=== PATIENT | male | born 1935 | race Hispanic/Latino ===

== ENCOUNTER → 2019-05-07 | Outpatient (CLI) | payer MEDICARE ==
--- NOTE | 2019-05-07 11:35 | Diagnostic Imaging Report ---
EXAM: Lumbar spine radiographs-7 views; sacral radiographs-4 views INDICATION: Fall, low back pain. COMPARISON: None FINDINGS: BONES: The alignment is within normal limits. No acute displaced fractures. Mild age indeterminate loss of vertebral body height in the posterior aspect of L1. Diffuse osteopenia. DISCS: Mild multilevel degenerative disc changes, most pronounced at L5-S1. JOINTS: Severe facet degenerative changes at L5-S1. SOFT TISSUES: Extensive atherosclerotic vascular calcifications. Moderate amount of stool in the colon. IMPRESSION: Mild age indeterminate loss of vertebral body height in the posterior aspect of L1. Suggest correlation with point tenderness. No evidence of acute displaced fracture. Mild multilevel degenerative disc changes, most pronounced at L5-S1. Severe facet degenerative changes at L5-S1. Signed by: Dr. Suzie Melendez MD on 05/07/2019 11:32 AM
== END ==
LOC: RAD 09:48
PROVIDERS: ATTEND Internal Medicine
DX: M54.5 Low back pain (principal); M51.37 Other intervertebral disc degeneration, lumbosacral region; W19.XXXA Unspecified fall, initial encounter
CPT/HCPCS: 72110; 72220

== ENCOUNTER → 2019-05-24 | Outpatient (CLI) | payer MEDICARE ==
--- NOTE | 2019-05-24 10:55 | Diagnostic Imaging Report ---
Examination: CT BRAIN WO CONTRAST History:Loss of balance. Dizziness. Comparison studies:None Technique: Axial images were obtained from the skull base to the vertex. Coronal and sagittal images reconstructed from the axial data. Dose modulation, iterative reconstruction, and/or weight based adjustment of the mA/kV was utilized to reduce the radiation dose to as low as reasonably achievable. Intravenous contrast: None Findings: Scalp: No abnormalities. Bones: No fractures, blastic or lytic lesions. Brain sulci: Appropriate for age. Ventricles: Normal in size and configuration. No hydrocephalus. Extra-axial space: No acute abnormality. Bifrontal chronic subdural collections are identified with mild regional mass effect, but no midline shift or herniation. The right collection measures approximately 1.1 cm and the left collection measures approximately 0.7 cm.. Parenchyma: No masses, hemorrhage, or acute or chronic cortical based vascular insults.. Sellar/suprasellar region: No abnormalities. Craniocervical junction: Patent foramen magnum. No Chiari one malformation. Incidental findings: None. Impression: No acute intracranial abnormalities. 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 No midline shift or herniation. Signed by: Dr. Thais Mejias M.D. on 05/24/2019 10:51 AM
== END ==
LOC: CT 09:29
PROVIDERS: ATTEND Internal Medicine
DX: G45.1 Carotid artery syndrome (hemispheric) (principal); S09.90XA Unspecified injury of head, initial encounter; W10.8XXS Fall (on) (from) other stairs and steps, sequela
CPT/HCPCS: 70450

== ENCOUNTER 2021-10-27 13:10 | Inpatient (IN) | payer MEDICARE, OTHER ==
[~2021-10-27] VITALS: Ht 182.9 cm; Wt 86.9 kg
[2021-10-27 13:44] LABS: BASOPHILS # (AUTO) 0.1 (0.0-0.1); BASOPHILS % 0.8 % (0.0-1.0); EOSINOPHILS # (AUTO) 0.3 (0.0-0.4); EOSINOPHILS % 3.6 % (0.0-6.0); HEMATOCRIT 44.2 % (38.2-49.6); HEMOGLOBIN 14.4 g/dL (14.0-18.0); LYMPHOCYTES # (AUTO) 1.8 (1.0-3.2); LYMPHOCYTES % 23.1 % (18.0-39.1); MEAN CORPUSCULAR HEMOGLOBIN 30.3 pg (28-32); MEAN CORPUSCULAR HGB CONC 32.6 g/dL (31-35); MEAN CORPUSCULAR VOLUME 93.1 fL (81-99); MONOCYTES # (AUTO) 0.7 (0.2-0.8); MONOCYTES % 8.5 % (4.4-11.3); NEUTROPHILS % 63.5 % (38.7-80.0); PLATELET COUNT 202 x10e3/uL (140-360); RED BLOOD COUNT 4.75 x10e6/uL (4.3-5.7); RED CELL DISTRIBUTION WIDTH 13.1 % (11.7-14.4)
[2021-10-27 13:57] LABS: ALBUMIN 3.2 g/dL (3.5-5.0); ALBUMIN/GLOBULIN RATIO 0.8 (0.8-2.0); ANION GAP 14.2 mmol/L (8-16); CALCIUM 9.4 mg/dL (8.4-10.2); CREATININE, SERUM 3.49 mg/dL (0.72-1.25); POTASSIUM 4.2 mmol/L (3.5-5.1)
[2021-10-27] MEDS ORDERED: AMLODIPINE BESYL5 MG PO (14:25)
[2021-10-27] MEDS ORDERED: LISINOPRIL20 MG PO (14:27)
[2021-10-27] MEDS ORDERED: LIPITOR20 MG PO (14:27)
[2021-10-27] MEDS ORDERED: SENSIPAR30 MG PO (14:27)
[2021-10-27] MEDS ORDERED: METOPROLOL TARTRATE 25 MG TAB PO ONE (14:30)
[2021-10-27] MEDS ORDERED: METOPROLOL TARTRATE INJ 1 MG/ML VIAL IV ONE (14:30)
[2021-10-27] MEDS ORDERED: HEPARIN SOD (PORCINE) 5,000 UNIT/ML VIAL IV ONE (14:45)
[2021-10-27] MEDS ORDERED: ASPIRIN 81 MG CHEW TAB PO ONE ×2 (14:45→16:15)
[2021-10-27 14:51] LABS: INR 0.89; PROTHROMBIN TIME 12.9 seconds (11.9-14.5)
[2021-10-27] MEDS ORDERED: NIFEDIPINE CR 30 MG TAB PO SCH (15:15)
[2021-10-27] MEDS ORDERED: POTASSIUM CHLORIDE 20 MEQ TAB CR PO PRN (15:15)
[2021-10-27] MEDS ORDERED: TRAMADOL HCL 50 MG TAB PO PRN (15:15)
[2021-10-27] MEDS ORDERED: ALBUTEROL/IPRATROPIUM 3 ML NEB NEB PRN (15:15)
[2021-10-27] MEDS ORDERED: ACETAMINOPHEN 325 MG TAB PO PRN (15:15)
[2021-10-27] MEDS ORDERED: DOCUSATE SODIUM 100 MG CAP PO PRN (15:15)
[2021-10-27] MEDS ORDERED: LIDOCAINE 4% PATCH TP PRN (15:15)
[2021-10-27] MEDS ORDERED: DEXTROSE 50% SYRINGE 50 ML IV PRN (15:15)
[2021-10-27] MEDS ORDERED: ONDANSETRON HCL INJ 2MG/ML 2ML 2 MG/ML VIAL IV PRN (15:15)
[2021-10-27] MEDS ORDERED: HYDRALAZINE HCL 20 MG/ML VIAL IV PRN (15:15)
[2021-10-27] MEDS ORDERED: BENZONATATE 100 MG CAP PO PRN (15:15)
[2021-10-27] MEDS ORDERED: DIPHENHYDRAMINE HCL 25 MG CAP PO PRN (15:15)
[2021-10-27] MEDS ORDERED: METOPROLOL SUCCINATE 25 MG TAB XL PO SCH (15:15)
[2021-10-27] MEDS ORDERED: SIMETHICONE 80 MG CHEW PO PRN (15:15)
[2021-10-27 15:55] VITALS: BP 138/89
[2021-10-27] MEDS: HEPARIN 25,000 UNIT 1,000 UNIT in DEXTROSE 5% 250ML 250 ML IV SCH (16:00)
[2021-10-27 16:08] VITALS: BP 138/89
[2021-10-27 16:14] VITALS: BP 138/89
[2021-10-27] MEDS ORDERED: ASPIRIN 81 MG CHEW TAB PO NR (16:15)
[2021-10-27] MEDS: SODIUM CHLORIDE 0.9% 1000ML 1,000 ML IV SCH (17:13)
[2021-10-27 20:00] VITALS: BP 130/78
[2021-10-27] MEDS ORDERED: NICOTINE 21 MG/EA PATCH TOP SCH (20:00)
[2021-10-27] MEDS ORDERED: MELATONIN 5 MG TABLET PO PRN (21:00)
[2021-10-27] MEDS: METOPROLOL TARTRATE 25 MG TAB PO SCH (21:13)
[2021-10-27] MEDS: ATORVASTATIN 20 MG TAB PO SCH (21:13)
[2021-10-27 21:30] VITALS: BP 130/78
[2021-10-28] VITALS (10 sets, daily range): BP systolic 130–181; BP diastolic 78–111
[2021-10-28] MEDS: SODIUM CHLORIDE 0.9% 1000ML 1,000 ML IV SCH ×2 (04:31→19:44)
[2021-10-28 06:46] LABS: BASOPHILS # (AUTO) 0.1 (0.0-0.1); BASOPHILS % 0.8 % (0.0-1.0); EOSINOPHILS # (AUTO) 0.3 (0.0-0.4); EOSINOPHILS % 3.3 % (0.0-6.0); HEMATOCRIT 41.6 % (38.2-49.6); HEMOGLOBIN 13.2 g/dL (14.0-18.0); LYMPHOCYTES # (AUTO) 2.4 (1.0-3.2); LYMPHOCYTES % 29.6 % (18.0-39.1); MEAN CORPUSCULAR HEMOGLOBIN 29.7 pg (28-32); MEAN CORPUSCULAR HGB CONC 31.7 g/dL (31-35); MEAN CORPUSCULAR VOLUME 93.5 fL (81-99); MONOCYTES # (AUTO) 0.7 (0.2-0.8); MONOCYTES % 9.2 % (4.4-11.3); NEUTROPHILS # (AUTO) 4.5 (2.1-6.9); NEUTROPHILS % 56.7 % (38.7-80.0); PLATELET COUNT 185 x10e3/uL (140-360); RED BLOOD COUNT 4.45 x10e6/uL (4.3-5.7); RED CELL DISTRIBUTION WIDTH 13.2 % (11.7-14.4)
[2021-10-28 07:38] LABS: ANION GAP 11.4 mmol/L (8-16); CALCIUM 8.8 mg/dL (8.4-10.2); CREATININE, SERUM 3.07 mg/dL (0.72-1.25); POTASSIUM 4.4 mmol/L (3.5-5.1)
[2021-10-28 08:02] LABS: CHOL/HDL RATIO 4.4 (3.9-4.7); MAGNESIUM 1.9 MG/DL (1.3-2.1)
[2021-10-28 08:22] LABS: THYROID STIMULATING HORMONE 1.836 uIU/mL (0.350-4.940)
[2021-10-28 08:36] LABS: CREATINE KINASE MB 19.1 ng/mL (0-5.0)
[2021-10-28] MEDS: METOPROLOL TARTRATE 25 MG TAB PO SCH ×2 (09:22→16:53)
[2021-10-28] MEDS: PANTOPRAZOLE SOD 40 MG TABEC PO SCH (09:22)
[2021-10-28] MEDS: ASPIRIN 81 MG ENTERIC COATED PO SCH (09:22)
[2021-10-28 14:57] LABS: CREATINE KINASE MB 7.1 ng/mL (0-5.0)
[2021-10-28] MEDS: HEPARIN 25,000 UNIT 1,000 UNIT in DEXTROSE 5% 250ML 250 ML IV SCH (16:54)
[2021-10-28] MEDS ORDERED: NICOTINE 21 MG/EA PATCH TOP SCH (21:00)
[2021-10-28] MEDS: ATORVASTATIN 20 MG TAB PO SCH (21:30)
[2021-10-28] MEDS ORDERED: HEPARIN 25,000 UNIT 1,000 UNIT in DEXTROSE 5% 250ML 250 ML IV SCH (21:40)
[2021-10-29] VITALS (21 sets, daily range): BP systolic 142–194; BP diastolic 81–111
[2021-10-29] MEDS: PANTOPRAZOLE SOD 40 MG TABEC PO SCH (05:52)
[2021-10-29 05:57] LABS: BASOPHILS # (AUTO) 0.1 (0.0-0.1); BASOPHILS % 0.9 % (0.0-1.0); EOSINOPHILS # (AUTO) 0.3 (0.0-0.4); EOSINOPHILS % 3.3 % (0.0-6.0); HEMATOCRIT 43.6 % (38.2-49.6); HEMOGLOBIN 14.1 g/dL (14.0-18.0); LYMPHOCYTES # (AUTO) 2.3 (1.0-3.2); LYMPHOCYTES % 28.7 % (18.0-39.1); MEAN CORPUSCULAR HEMOGLOBIN 29.9 pg (28-32); MEAN CORPUSCULAR HGB CONC 32.3 g/dL (31-35); MEAN CORPUSCULAR VOLUME 92.6 fL (81-99); MONOCYTES # (AUTO) 0.8 (0.2-0.8); MONOCYTES % 9.7 % (4.4-11.3); NEUTROPHILS # (AUTO) 4.5 (2.1-6.9); NEUTROPHILS % 56.9 % (38.7-80.0); PLATELET COUNT 179 x10e3/uL (140-360); RED BLOOD COUNT 4.71 x10e6/uL (4.3-5.7); RED CELL DISTRIBUTION WIDTH 13.1 % (11.7-14.4)
[2021-10-29 06:22] LABS: ANION GAP 12.4 mmol/L (8-16); CALCIUM 9.2 mg/dL (8.4-10.2); CREATININE, SERUM 3.21 mg/dL (0.72-1.25); POTASSIUM 4.4 mmol/L (3.5-5.1)
[2021-10-29] MEDS ORDERED: HEPARIN 25,000 UNIT 1,000 UNIT in DEXTROSE 5% 250ML 250 ML IV SCH ×2 (06:55→13:30)
[2021-10-29] MEDS: SODIUM CHLORIDE 0.9% 1000ML 1,000 ML IV SCH (07:00)
[2021-10-29] MEDS ORDERED: HEPARIN SOD (PORCINE) 1000 UNIT/ML 30ML ONE (07:35)
[2021-10-29] MEDS ORDERED: HEPARIN SOD/SOD CHLORIDE 2,000 ML ONE (07:35)
[2021-10-29] MEDS ORDERED: NITROGLYCERIN/D5W 200 MCG/ML 250 ML ONE (07:36)
[2021-10-29] MEDS ORDERED: IOPAMIDOL 370 MG/ML 100 ML INFUS..BTL INJ ONE (07:36)
[2021-10-29] MEDS ORDERED: SODIUM CHLORIDE 0.9% 1000ML 1,000 ML ONE (07:36)
[2021-10-29] MEDS ORDERED: VERAPAMIL HCL 2.5 MG/ML 2 ML VIAL ONE (07:37)
[2021-10-29] MEDS ORDERED: MIDAZOLAM HCL 2 MG/2 ML VIAL ONE (07:37)
[2021-10-29] MEDS ORDERED: FENTANYL CITRATE/PF 100MCG/2 ML INJ ONE (07:38)
[2021-10-29] MEDS ORDERED: LIDOCAINE HCL 1% LOCAL INJ 20 ML VIAL ONE (07:38)
[2021-10-29] MEDS ORDERED: IOPAMIDOL 300MG/ML 100 ML INFUS..BTL IV ONE (07:44)
[2021-10-29] MEDS: METOPROLOL TARTRATE 25 MG TAB PO SCH ×3 (09:00→16:42)
[2021-10-29] MEDS: ASPIRIN 81 MG ENTERIC COATED PO SCH (09:00)
[2021-10-29] MEDS ORDERED: HYDRALAZINE HCL 20 MG/ML VIAL IV ONE ×2 (09:30→12:00)
[2021-10-29] MEDS: ACETYLCYSTEINE 200 MG/ML 4ML VIAL PO SCH ×2 (10:30→16:42)
[2021-10-29] MEDS ORDERED: ATORVASTATIN 40 MG TAB PO SCH (21:00)
== END 2021-10-29 18:50 | disposition short-term general hospital (02) | DRG 281 ==
LOC: ER 13:35 → ERHOLD 14:35 → MED/SURG3 15:18
PROVIDERS: ADMIT Internal Medicine; ATTEND Internal Medicine
PROC: 4A023N7 Measurement of Cardiac Sampling and Pressure, Left Heart, Percutaneous Approach (ICD-10-PCS; principal; 2021-10-29)
PROC: B2151ZZ Fluoroscopy of Left Heart using Low Osmolar Contrast (ICD-10-PCS; 2021-10-29)
PROC: B2111ZZ Fluoroscopy of Multiple Coronary Arteries using Low Osmolar Contrast (ICD-10-PCS; 2021-10-29)
DX: I21.4 Non-ST elevation (NSTEMI) myocardial infarction (principal); N18.4 Chronic kidney disease, stage 4 (severe); I48.0 Paroxysmal atrial fibrillation; I12.9 Hypertensive chronic kidney disease with stage 1 through stage 4 chronic kidney disease, or unspecified chronic kidney disease; E11.22 Type 2 diabetes mellitus with diabetic chronic kidney disease; E78.5 Hyperlipidemia, unspecified; F17.210 Nicotine dependence, cigarettes, uncomplicated; Z86.73 Personal history of transient ischemic attack (TIA), and cerebral infarction without residual deficits; I25.10 Atherosclerotic heart disease of native coronary artery without angina pectoris; Z85.46 Personal history of malignant neoplasm of prostate; Z82.49 Family history of ischemic heart disease and other diseases of the circulatory system; Z20.822 Contact with and (suspected) exposure to COVID-19; J84.10 Pulmonary fibrosis, unspecified
CPT/HCPCS: 36415; 71045; 80048; 80053; 80061; 82550; 82553; 83036; 83690; 83735; 84100; 84443; 84484; 85025; 85610; 85730; 93005; 93458; 94799; 99152; 99153; 99284; C1887; J0360; J1644; J2001; J2250; J2405; J3010; J7030; Q9967; U0002

== ENCOUNTER 2021-11-22 19:41 | Emergency (ER) | payer MEDICARE ==
[~2021-11-22] VITALS: Ht 182.9 cm; Wt 86.6 kg
[~2021-11-22 19:41] MED LIST: AMLODIPINE BESYL5 MG PO; LIPITOR20 MG PO; LISINOPRIL20 MG PO; SENSIPAR30 MG PO
[2021-11-22 20:33] LABS: BASOPHILS % 0.4 % (0.0-1.0); EOSINOPHILS # (AUTO) 0.2 (0.0-0.4); HEMATOCRIT 28.2 % (38.2-49.6); HEMOGLOBIN 8.6 g/dL (14.0-18.0); LYMPHOCYTES # (AUTO) 1.6 (1.0-3.2); LYMPHOCYTES % 21.1 % (18.0-39.1); MEAN CORPUSCULAR HGB CONC 30.5 g/dL (31-35); MEAN CORPUSCULAR VOLUME 94.9 fL (81-99); MONOCYTES # (AUTO) 1.1 (0.2-0.8); MONOCYTES % 14.3 % (4.4-11.3); NEUTROPHILS # (AUTO) 4.7 (2.1-6.9); NEUTROPHILS % 61.7 % (38.7-80.0); PLATELET COUNT 159 x10e3/uL (140-360); RED BLOOD COUNT 2.97 x10e6/uL (4.3-5.7); RED CELL DISTRIBUTION WIDTH 15.9 % (11.7-14.4)
[2021-11-22 20:51] LABS: ALBUMIN 2.5 g/dL (3.5-5.0); ALBUMIN/GLOBULIN RATIO 0.9 (0.8-2.0); ANION GAP 13.5 mmol/L (8-16); CALCIUM 9.1 mg/dL (8.4-10.2); CREATININE, SERUM 5.13 mg/dL (0.72-1.25); POTASSIUM 3.5 mmol/L (3.5-5.1)
[2021-11-22 22:42] LABS: CREATINE KINASE MB 0.9 ng/mL (0-5.0)
[2021-11-23 01:56] VITALS: BP 125/53
== END 2021-11-23 01:15 | disposition other institution (70) ==
LOC: ER 20:06
DX: R53.1 Weakness (principal); R77.8 Other specified abnormalities of plasma proteins; R11.0 Nausea; I10 Essential (primary) hypertension; N28.9 Disorder of kidney and ureter, unspecified; R94.31 Abnormal electrocardiogram [ECG] [EKG]; Z20.822 Contact with and (suspected) exposure to COVID-19; Z86.73 Personal history of transient ischemic attack (TIA), and cerebral infarction without residual deficits
CPT/HCPCS: 36415; 71045; 80053; 82550; 82553; 84484; 85025; 93005; 99284; U0002

== ENCOUNTER → 2022-01-08 | Outpatient (CLI) | payer MEDICARE ==
[2022-01-08 13:07] LABS: CREATININE, SERUM 5.31 mg/dL (0.72-1.25)
== END ==
LOC: CT 11:43
PROVIDERS: ATTEND Internal Medicine
DX: Z87.891 Personal history of nicotine dependence (principal)
CPT/HCPCS: 36415; 71250; 82565; 84520

== ENCOUNTER → 2022-08-18 | Outpatient (CLI) | payer MEDICARE | LOC: CT 08:40 | PROVIDERS: ATTEND Internal Medicine | DX: R68.84 Jaw pain (principal) | CPT/HCPCS: 70486 ==

== ENCOUNTER 2023-12-04 08:04 | Observation (INO) | payer MEDICARE ==
[~2023-12-04] VITALS: Ht 177.8 cm; Wt 84.6 kg
[~2023-12-04 08:04] MED LIST changes: +ATORVASTATIN CA20 MG PO; +CARAFATE1 GM PO; +CIPRO250 MG PO; +CRESTOR10 MG PO; +FLOMAX0.4 MG PO; +LASIX80 MG PO; +LIDO-PRILO CAI1 EACH TOP; +LOSARTAN POTASS25 MG PO; +MEDROL4 M2 PO; +NEPHRO VITAMIN0.8 MG; +NEPHRO-VITE TABL1 EA PO; +NEURONTIN100 MG PO; +ONDANSETRON ODT4 MG PO; +ONDANSETRON ODT4 MG SL; +PANTOPRAZOLE SO40 MG PO; +PROTONIX20 MG PO; +ULTRAM 50MG50 MG PO; +VESICARE5 MG PO; +VIT D3 PO
[2023-12-04 09:05] LABS: BASOPHILS % 0.5 % (0.0-1.0); EOSINOPHILS # (AUTO) 0.3 (0.0-0.4); HEMOGLOBIN 10.4 g/dL (14.0-18.0); LYMPHOCYTES # (AUTO) 1.5 (1.0-3.2); LYMPHOCYTES % 23.9 % (18.0-39.1); MEAN CORPUSCULAR HEMOGLOBIN 30.1 pg (28-32); MEAN CORPUSCULAR HGB CONC 31.5 g/dL (31-35); MEAN CORPUSCULAR VOLUME 95.7 fL (81-99); MONOCYTES # (AUTO) 0.6 (0.2-0.8); MONOCYTES % 9.8 % (4.4-11.3); NEUTROPHILS # (AUTO) 3.8 (2.1-6.9); NEUTROPHILS % 60.5 % (38.7-80.0); PLATELET COUNT 169 x10e3/uL (140-360); RED BLOOD COUNT 3.45 x10e6/uL (4.3-5.7); RED CELL DISTRIBUTION WIDTH 13.1 % (11.7-14.4); WHITE BLOOD COUNT 6.24 x10e3/uL (4.8-10.8)
[2023-12-04] MEDS: SODIUM CHLORIDE 0.9% 500ML 500 ML ONE (09:21)
[2023-12-04 09:26] LABS: INR 0.94; PROTHROMBIN TIME 13.2 seconds (11.9-14.5)
[2023-12-04 09:27] LABS: PARTIAL THROMBOPLASTIN TIME 29.5 seconds (23.8-35.5)
[2023-12-04 09:35] LABS: ALBUMIN 3.5 g/dL (3.5-5.0); ALBUMIN/GLOBULIN RATIO 1.1 (0.8-2.0); ANION GAP 16.2 mmol/L (8-16); BILIRUBIN,TOTAL 1.2 mg/dL (0.2-1.2); CALCIUM 8.4 mg/dL (8.4-10.2); CREATININE, SERUM 6.29 mg/dL (0.72-1.25); POTASSIUM 4.2 mmol/L (3.5-5.1); TOTAL PROTEIN 6.7 g/dL (6.5-8.1)
[2023-12-04] MEDS ORDERED: ACETAMINOPHEN 1000 MG/100 ML 100 ML IV ONE (11:08)
[2023-12-04] MEDS ORDERED: BUPIVACAINE 0.25% 30ML SDV ONE (11:51)
[2023-12-04] MEDS ORDERED: GLYCOPYRROLATE INJ 0.2 MG/ML VIAL ONE (12:19)
[2023-12-04] MEDS ORDERED: SEVOFLURANE INHAL SOLN 250 ML PEN BTL ONE (12:19)
[2023-12-04] MEDS ORDERED: NEOSTIGMINE 1 MG/ML 10ML VIAL ONE (12:19)
[2023-12-04] MEDS ORDERED: METOCLOPRAMIDE HCL 10 MG/2ML VIAL ONE (12:19)
[2023-12-04] MEDS ORDERED: PROPOFOL IV EMULSION 10 MG/ML 20 ML VIAL ONE (12:19)
[2023-12-04] MEDS ORDERED: LIDOCAINE HCL 2% LOCAL INJ 5 ML SDV VIAL INJ ONE (12:19)
[2023-12-04] MEDS ORDERED: ONDANSETRON HCL INJ 2MG/ML 2ML 2 MG/ML VIAL ONE (12:19)
[2023-12-04] MEDS ORDERED: FENTANYL CITRATE/PF 100MCG/2 ML INJ ONE (12:26)
[2023-12-04] MEDS ORDERED: HYDROMORPHONE 1MG/1ML INJ IV PRN (13:15)
[2023-12-04 14:00] VITALS: BP 163/68; PULSE 61; RESP 17; TEMP 97.3; O2SAT 97
[2023-12-04] MEDS: SODIUM CHLORIDE 0.9% 1000ML 1,000 ML IV SCH (14:21)
[2023-12-04 14:30] VITALS: BP 155/58; PULSE 54; RESP 16; TEMP 98.2; O2SAT 98
[2023-12-04] MEDS: ONDANSETRON HCL INJ 2MG/ML 2ML 2 MG/ML VIAL IV PRN (14:46)
[2023-12-04 16:00] VITALS: BP 180/71; PULSE 66; RESP 17; TEMP 97.8
[2023-12-04] MEDS: FUROSEMIDE 40 MG TAB PO SCH (16:17)
[2023-12-04] MEDS: HYDROCODONE/APAP 5MG-325MG TAB PO PRN (16:18)
[2023-12-04 16:51] VITALS: BP 163/75
[2023-12-04] MEDS: ACETAMINOPHEN 1000 MG/100 ML IV PRN (17:29)
[2023-12-04 19:46] VITALS: BP 202/78; PULSE 61; RESP 17; TEMP 97.5; O2SAT 98
[2023-12-04] MEDS: LOSARTAN POTASSIUM 25 MG TAB PO SCH (19:49)
[2023-12-04 23:45] VITALS: BP 163/62; PULSE 67; RESP 17; TEMP 98.1; O2SAT 97
[2023-12-05 03:12] VITALS: BP 156/65; PULSE 67; RESP 17; TEMP 97.7; O2SAT 98
[2023-12-05 05:47] LABS: BASOPHILS % 0.2 % (0.0-1.0); EOSINOPHILS # (AUTO) 0.1 (0.0-0.4); EOSINOPHILS % 0.5 % (0.0-6.0); HEMATOCRIT 32.4 % (38.2-49.6); HEMOGLOBIN 10.2 g/dL (14.0-18.0); LYMPHOCYTES # (AUTO) 0.9 (1.0-3.2); LYMPHOCYTES % 7.7 % (18.0-39.1); MEAN CORPUSCULAR HEMOGLOBIN 30.2 pg (28-32); MEAN CORPUSCULAR HGB CONC 31.5 g/dL (31-35); MEAN CORPUSCULAR VOLUME 95.9 fL (81-99); NEUTROPHILS # (AUTO) 9.5 (2.1-6.9); NEUTROPHILS % 82.3 % (38.7-80.0); PLATELET COUNT 157 x10e3/uL (140-360); RED BLOOD COUNT 3.38 x10e6/uL (4.3-5.7); RED CELL DISTRIBUTION WIDTH 13.1 % (11.7-14.4); WHITE BLOOD COUNT 11.53 x10e3/uL (4.8-10.8)
[2023-12-05 06:09] LABS: ANION GAP 16.3 mmol/L (8-16); CALCIUM 8.1 mg/dL (8.4-10.2); CREATININE, SERUM 7.28 mg/dL (0.72-1.25); POTASSIUM 4.3 mmol/L (3.5-5.1)
[2023-12-05 08:00] VITALS: BP 161/78; PULSE 68; RESP 18; TEMP 97.4; O2SAT 100
[2023-12-05 12:00] VITALS: BP 153/71; PULSE 71; TEMP 97.8; O2SAT 18
[2023-12-05 16:00] VITALS: BP 148/71; PULSE 74; RESP 18; TEMP 97.8; O2SAT 98
== END 2023-12-05 16:43 | disposition home or self-care (01) ==
LOC: OR 08:04 → MED/SURG 13:44
PROVIDERS: ADMIT Surgery; ATTEND Surgery
DX: K80.10 Calculus of gallbladder with chronic cholecystitis without obstruction (principal); K82.8 Other specified diseases of gallbladder; K76.0 Fatty (change of) liver, not elsewhere classified; I25.810 Atherosclerosis of coronary artery bypass graft(s) without angina pectoris; I12.0 Hypertensive chronic kidney disease with stage 5 chronic kidney disease or end stage renal disease; N18.6 End stage renal disease; I25.2 Old myocardial infarction; E78.5 Hyperlipidemia, unspecified; K21.9 Gastro-esophageal reflux disease without esophagitis; Z99.2 Dependence on renal dialysis; Z79.899 Other long term (current) drug therapy; Z95.1 Presence of aortocoronary bypass graft
CPT/HCPCS: 36415 ×2; 47562; 80048; 80053; 85025 ×2; 85610; 85730; 88304; C1766; G0378 ×2; J0131; J0690 ×2; J2001; J2405; J2470 ×2; J2704; J2710; J2765; J3010; J7030 ×2; J7040

== ENCOUNTER → 2024-06-17 | Day surgery (SDC) | payer MEDICARE ==
[~2024-06-17] MED LIST changes: +ACETAMINOPHEN 1000 MG/100 ML 100 ML IV ONE; +ACETAMINOPHEN/CODEINE 300MG - 30MG TAB ONE; +DEXAMETHASONE SOD PHOS INJ 4 MG/ML SDV ONE; +EPHEDRINE SULFATE INJ 50 MG/ML VIAL ONE; +ETOMIDATE 40 MG/ 20ML VIAL IV ONE; +FENTANYL CITRATE/PF 100MCG/2 ML INJ ONE; +HYDROCODON-ACE1 EA11 PO; +LIDOCAINE HCL 2% LOCAL INJ 5 ML SDV VIAL INJ ONE; +ONDANSETRON HCL INJ 2MG/ML 2ML 2 MG/ML VIAL ONE; +PHENAZOPYRIDINE HCL 100 MG TAB ONE; +PROPOFOL IV EMULSION 10 MG/ML 20 ML VIAL ONE; +ROCURONIUM BROMIDE 1 ML IV ONE; +SEVOFLURANE INHAL SOLN 250 ML PEN BTL ONE; +SUGAMMADEX SODIUM 200 MG/2 ML VIAL IV ONE
[2024-06-17 10:28] LABS: BASOPHILS # (AUTO) 0.1 (0.0-0.1); BASOPHILS % 0.8 % (0.0-1.0); EOSINOPHILS # (AUTO) 0.3 (0.0-0.4); EOSINOPHILS % 4.1 % (0.0-6.0); HEMATOCRIT 40.1 % (38.2-49.6); LYMPHOCYTES # (AUTO) 1.4 (1.0-3.2); LYMPHOCYTES % 21.9 % (18.0-39.1); MEAN CORPUSCULAR HEMOGLOBIN 30.2 pg (28-32); MEAN CORPUSCULAR HGB CONC 29.9 g/dL (31-35); MEAN CORPUSCULAR VOLUME 100.8 fL (81-99); MONOCYTES # (AUTO) 0.7 (0.2-0.8); MONOCYTES % 11.2 % (4.4-11.3); NEUTROPHILS % 61.7 % (38.7-80.0); PLATELET COUNT 162 x10e3/uL (140-360); RED BLOOD COUNT 3.98 x10e6/uL (4.3-5.7); RED CELL DISTRIBUTION WIDTH 13.5 % (11.7-14.4); WHITE BLOOD COUNT 6.53 x10e3/uL (4.8-10.8)
[2024-06-17] MEDS: SODIUM CHLORIDE 0.9% 500ML 500 ML ONE (10:43)
[2024-06-17] MEDS: CEFTRIAXONE 1 GM VIAL ONE (10:44)
[2024-06-17 10:54] LABS: ALBUMIN 3.7 g/dL (3.5-5.0); ALBUMIN/GLOBULIN RATIO 1.1 (0.8-2.0); ANION GAP 19.5 mmol/L (8-16); BILIRUBIN,TOTAL 1.2 mg/dL (0.2-1.2); CREATININE, SERUM 7.86 mg/dL (0.72-1.25); INR 0.94; POTASSIUM 4.5 mmol/L (3.5-5.1); PROTHROMBIN TIME 13.1 seconds (11.9-14.5)
[2024-06-17 10:55] LABS: PARTIAL THROMBOPLASTIN TIME 28.7 seconds (23.8-35.5)
[2024-06-17] MEDS: FENTANYL CITRATE/PF 100MCG/2 ML INJ ONE (15:13)
[2024-06-17 16:00] VITALS: BP 175/91; PULSE 65; RESP 16; O2SAT 96
[2024-06-17] MEDS: ACETAMINOPHEN/CODEINE 300MG - 30MG TAB PO ONE (16:00)
== END | disposition home or self-care (01) ==
LOC: OR 08:57
PROVIDERS: ATTEND Urology
DX: C67.9 Malignant neoplasm of bladder, unspecified (principal); C61 Malignant neoplasm of prostate; C68.0 Malignant neoplasm of urethra; N35.812 Other bulbous urethral stricture, male; N13.8 Other obstructive and reflux uropathy; K21.9 Gastro-esophageal reflux disease without esophagitis; I12.0 Hypertensive chronic kidney disease with stage 5 chronic kidney disease or end stage renal disease; N18.6 End stage renal disease; I35.1 Nonrheumatic aortic (valve) insufficiency; I34.0 Nonrheumatic mitral (valve) insufficiency; I07.1 Rheumatic tricuspid insufficiency; I25.2 Old myocardial infarction; Z79.899 Other long term (current) drug therapy; Z99.2 Dependence on renal dialysis; Z98.890 Other specified postprocedural states; Z95.1 Presence of aortocoronary bypass graft
CPT/HCPCS: 36415; 52240; 52332; 74420; 80053; 85025; 85610; 85730; 88305; 88307; 93005; 93306; C1758; C2617; J0131; J0696; J1100; J2003; J2405; J2704; J3010; J7040

== ENCOUNTER 2024-06-21 10:15 | Emergency (ER) | payer MEDICARE ==
[~2024-06-21] VITALS: Ht 177.8 cm; Wt 83.9 kg
[~2024-06-21 10:15] MED LIST changes: -ACETAMINOPHEN 1000 MG/100 ML 100 ML IV ONE; -ACETAMINOPHEN/CODEINE 300MG - 30MG TAB ONE; -DEXAMETHASONE SOD PHOS INJ 4 MG/ML SDV ONE; -EPHEDRINE SULFATE INJ 50 MG/ML VIAL ONE; -ETOMIDATE 40 MG/ 20ML VIAL IV ONE; -FENTANYL CITRATE/PF 100MCG/2 ML INJ ONE; -HYDROCODON-ACE1 EA11 PO; -LIDOCAINE HCL 2% LOCAL INJ 5 ML SDV VIAL INJ ONE; -ONDANSETRON HCL INJ 2MG/ML 2ML 2 MG/ML VIAL ONE; -PHENAZOPYRIDINE HCL 100 MG TAB ONE; -PROPOFOL IV EMULSION 10 MG/ML 20 ML VIAL ONE; -ROCURONIUM BROMIDE 1 ML IV ONE; -SEVOFLURANE INHAL SOLN 250 ML PEN BTL ONE; -SUGAMMADEX SODIUM 200 MG/2 ML VIAL IV ONE
[2024-06-21 10:22] VITALS: PULSE 89; RESP 18; TEMP 98.3; O2SAT 100
[2024-06-21] MEDS ORDERED: HYDROCODON-ACE1 EA11 PO (11:37)
[2024-06-21] MEDS: LIDOCAINE/PRILOCAINE 2.5-2.5% KIT TOP ONE (11:39)
[2024-06-21] MEDS: HYDROCODONE/APAP 5MG-325MG TAB PO ONE (11:39)
== END 2024-06-21 12:02 | disposition home or self-care (01) ==
LOC: ER 10:20
DX: N48.89 Other specified disorders of penis (principal); R31.9 Hematuria, unspecified; I25.10 Atherosclerotic heart disease of native coronary artery without angina pectoris; I12.0 Hypertensive chronic kidney disease with stage 5 chronic kidney disease or end stage renal disease; N18.6 End stage renal disease; Z99.2 Dependence on renal dialysis; E78.5 Hyperlipidemia, unspecified; I50.9 Heart failure, unspecified; H40.9 Unspecified glaucoma; Z85.51 Personal history of malignant neoplasm of bladder; Z95.1 Presence of aortocoronary bypass graft
CPT/HCPCS: 99283

== ENCOUNTER → 2024-08-31 | Day surgery (SDC) | payer MEDICARE ==
[~2024-08-31] MED LIST changes: +ACETAMINOPHEN 1000 MG/100 ML 0 ML IV ONE; +CEFUROXIME250 MG PO; +FENTANYL CITRATE/PF 100MCG/2 ML INJ ONE; +FUROSEMIDE40 MG PO; +HYDROCODON-ACE1 EA11 PO; -NEPHRO VITAMIN0.8 MG; +NEPHRO VITAMIN0.8 MG PO; +ONDANSETRON HCL INJ 2MG/ML 2ML 2 MG/ML VIAL ONE; +PROPOFOL IV EMULSION 10 MG/ML 20 ML VIAL ONE; +SEVOFLURANE INHAL SOLN 250 ML PEN BTL ONE
[2024-08-31] MEDS: SODIUM CHLORIDE 0.9% 500ML 500 ML ONE (09:48)
[2024-08-31] MEDS: CEFTRIAXONE 1 GM VIAL ONE (09:48)
[2024-08-31 09:56] LABS: BASOPHILS % 0.8 % (0.0-1.0); EOSINOPHILS # (AUTO) 0.2 (0.0-0.4); EOSINOPHILS % 4.7 % (0.0-6.0); HEMATOCRIT 31.2 % (38.2-49.6); HEMOGLOBIN 10.1 g/dL (14.0-18.0); LYMPHOCYTES # (AUTO) 1.1 (1.0-3.2); LYMPHOCYTES % 22.2 % (18.0-39.1); MEAN CORPUSCULAR HEMOGLOBIN 30.1 pg (28-32); MEAN CORPUSCULAR HGB CONC 32.4 g/dL (31-35); MEAN CORPUSCULAR VOLUME 92.9 fL (81-99); MONOCYTES # (AUTO) 0.6 (0.2-0.8); MONOCYTES % 11.4 % (4.4-11.3); NEUTROPHILS % 60.7 % (38.7-80.0); PLATELET COUNT 177 x10e3/uL (140-360); RED BLOOD COUNT 3.36 x10e6/uL (4.3-5.7); RED CELL DISTRIBUTION WIDTH 13.8 % (11.7-14.4); WHITE BLOOD COUNT 4.91 x10e3/uL (4.8-10.8)
[2024-08-31 10:21] LABS: INR 1.02; PARTIAL THROMBOPLASTIN TIME 30.3 seconds (23.8-35.5)
[2024-08-31 10:28] LABS: ANION GAP 16.8 mmol/L (8-16); CALCIUM 8.7 mg/dL (8.4-10.2); CREATININE, SERUM 7.23 mg/dL (0.72-1.25); POTASSIUM 3.8 mmol/L (3.5-5.1)
[2024-08-31 10:33] LABS: ALBUMIN 3.3 g/dL (3.5-5.0); ALBUMIN/GLOBULIN RATIO 1.1 (0.8-2.0); BILIRUBIN,TOTAL 0.9 mg/dL (0.2-1.2); TOTAL PROTEIN 6.2 g/dL (6.5-8.1)
[2024-08-31 15:55] VITALS: BP 169/77; PULSE 63; RESP 16; O2SAT 97
== END | disposition home or self-care (01) ==
LOC: OR 08:50
PROVIDERS: ATTEND Urology
DX: C67.9 Malignant neoplasm of bladder, unspecified (principal); N35.819 Other urethral stricture, male, unspecified site; Z46.6 Encounter for fitting and adjustment of urinary device; N39.0 Urinary tract infection, site not specified; N13.30 Unspecified hydronephrosis; R39.14 Feeling of incomplete bladder emptying; C61 Malignant neoplasm of prostate; N13.8 Other obstructive and reflux uropathy; N32.89 Other specified disorders of bladder; I12.0 Hypertensive chronic kidney disease with stage 5 chronic kidney disease or end stage renal disease; N18.6 End stage renal disease; I25.810 Atherosclerosis of coronary artery bypass graft(s) without angina pectoris; I25.2 Old myocardial infarction; E78.5 Hyperlipidemia, unspecified; K21.9 Gastro-esophageal reflux disease without esophagitis; K28.9 Gastrojejunal ulcer, unspecified as acute or chronic, without hemorrhage or perforation; M06.9 Rheumatoid arthritis, unspecified; M19.90 Unspecified osteoarthritis, unspecified site; Z79.899 Other long term (current) drug therapy; Z99.2 Dependence on renal dialysis; Z95.1 Presence of aortocoronary bypass graft; Z92.3 Personal history of irradiation
CPT/HCPCS: 36415; 52224; 52284; 52351; 74420; 80053; 85025; 85610; 85730; 88305; 88342; C1726; C1758; C1769; J0696; J2405; J7040

== ENCOUNTER → 2025-01-27 | Day surgery (SDC) | payer MEDICARE ==
[~2025-01-27] MED LIST changes: -ACETAMINOPHEN 1000 MG/100 ML 0 ML IV ONE; +DEXAMETHASONE SOD PHOS INJ 4 MG/ML SDV ONE; +EPHEDRINE SULFATE INJ 50 MG/ML VIAL ONE; +LIDOCAINE HCL 2% LOCAL INJ 5 ML SDV VIAL INJ ONE; +PHENYLEPHRINE HCL 1% 10 MG/ML VIAL ONE; +ROCURONIUM BROMIDE 1 ML IV ONE; +SODIUM CHLORIDE 0.9% 100 ML ONE; +SUGAMMADEX SODIUM 200 MG/2 ML VIAL IV ONE
[2025-01-27 07:09] LABS: BASOPHILS % 0.8 % (0.0-1.0); EOSINOPHILS % 3.2 % (0.0-6.0); LYMPHOCYTES % 16.7 % (18.0-39.1); MONOCYTES % 13.1 % (4.4-11.3); NEUTROPHILS % 66.0 % (38.7-80.0); RED CELL DISTRIBUTION WIDTH 13.8 % (11.7-14.4)
[2025-01-27 07:15] LABS: EST GLOMERULAR FILTRATION RATE 9.0 ML/MIN (>=60)
[2025-01-27 09:51] VITALS: TEMP 97.4
[2025-01-27] MEDS: SODIUM CHLORIDE 0.9% 500ML 500 ML ONE (11:21)
[2025-01-27] MEDS: CEFTRIAXONE 1 GM VIAL ONE (11:21)
[2025-01-27] MEDS: PHENAZOPYRIDINE HCL 100 MG TAB ONE (11:28)
[2025-01-27] MEDS: ACETAMINOPHEN/CODEINE 300MG - 30MG TAB ONE (11:28)
[2025-01-27 11:40] VITALS: BP 161/67; PULSE 65; RESP 18; O2SAT 96
[2025-01-27 12:25] LABS: INR 0.98
== END | disposition home or self-care (01) ==
LOC: OR 05:43
PROVIDERS: ATTEND Urology
DX: C67.2 Malignant neoplasm of lateral wall of bladder (principal); N35.912 Unspecified bulbous urethral stricture, male; E78.5 Hyperlipidemia, unspecified; K21.9 Gastro-esophageal reflux disease without esophagitis; I12.9 Hypertensive chronic kidney disease with stage 1 through stage 4 chronic kidney disease, or unspecified chronic kidney disease; N18.9 Chronic kidney disease, unspecified; I25.2 Old myocardial infarction; Z85.46 Personal history of malignant neoplasm of prostate; Z92.3 Personal history of irradiation; Z99.2 Dependence on renal dialysis; Z87.891 Personal history of nicotine dependence; Z79.899 Other long term (current) drug therapy; Z01.810 Encounter for preprocedural cardiovascular examination; Z01.812 Encounter for preprocedural laboratory examination
CPT/HCPCS: 36415; 52240; 52332; 52354; 71046; 74420; 80053; 85025; 85610; 85730; 87086; 88307; 93005; C1758; C1769; C2617; J0696; J1100; J2003; J2371; J2405; J2704; J3010; J7040; J7050; 43235; 88305